=== PATIENT | male | born 1950 | race Two or more races ===

== ENCOUNTER → 2020-09-06 | Outpatient (CLI) | payer MEDICARE, BC | END | disposition home or self-care (01) | LOC: MSC 15:00 | PROVIDERS: ATTEND Internal Medicine | DX: M25.562 Pain in left knee (principal); M19.079 Primary osteoarthritis, unspecified ankle and foot; G47.33 Obstructive sleep apnea (adult) (pediatric); Z98.890 Other specified postprocedural states; K21.9 Gastro-esophageal reflux disease without esophagitis; E78.5 Hyperlipidemia, unspecified; Z90.89 Acquired absence of other organs; Z87.898 Personal history of other specified conditions; I10 Essential (primary) hypertension; Z79.899 Other long term (current) drug therapy; R26.2 Difficulty in walking, not elsewhere classified; Z79.82 Long term (current) use of aspirin ==